=== PATIENT | female | born 1955 | race Caucasian/White ===

== ENCOUNTER → 2017-07-15 | Outpatient (CLI) | payer BC ==
--- NOTE | 2017-07-15 13:21 | REPMRS ---
Patient History The patient states she has not had a clinical breast exam in over a year. Patient is postmenopausal. Family history of breast cancer in maternal aunt under age 50 and colorectal cancer in maternal aunt at age 50 or over. Benign excisional biopsy of the right breast. Digital Woman Screen Mammo: July 15, 2017 - Exam #: [id number] Bilateral CC and MLO view(s) were taken. Technologist: Keke Bose, Technologist Prior study comparison: May 27, 2016, digital woman screen mammo performed at [facility] [employer] [facility]. January 07, 2015, digital woman screen mammo performed at [facility] [employer] [facility]. FINDINGS: There are scattered fibroglandular densities. There has been no change in the appearance of the mammogram from the prior studies. There is a mild amount of residual fibroglandular tissue which is fairly symmetric. There is no interval development of dominant mass, architectural distortion, or clustered microcalcification suggestive of malignancy. ASSESSMENT: BI-RADS/ACR category 1 mammogram. Negative. Recommendation Routine screening mammogram in 1 year (for women over age 40). This mammogram was interpreted with the aid of an FDA-approved computer-aided dectection system. Electronically Signed By: Dion Kramer MD 07/15/17 [id number]
== END ==
LOC: M WHC 10:21
PROVIDERS: ATTEND Family Medicine
DX: Z12.31 Encounter for screening mammogram for malignant neoplasm of breast (principal); Z78.0 Asymptomatic menopausal state

== ENCOUNTER → 2018-10-30 | Outpatient (CLI) | payer BC ==
--- NOTE | 2018-10-30 13:00 | REPMRS ---
Patient History The patient states she has not had a clinical breast exam in over a year. Family history of breast cancer under age 50 in maternal aunt, colorectal cancer at age 50 or over in maternal aunt. Benign excisional biopsy of the right breast. 3D TOMOSYNTHESIS WAS PERFORMED. Digital Woman Screen Mammo: October 30, 2018 - Exam #: [id number] Bilateral CC and MLO view(s) were taken. Technologist: Demetra Stewart, Technologist Prior study comparison: July 15, 2017, digital woman screen mammo performed at [facility] [employer] May 27, 2016, digital woman screen mammo performed at [facility] [employer]. FINDINGS: There are scattered fibroglandular densities. There has been no change in the appearance of the mammogram from the prior studies. There is a mild amount of residual fibroglandular tissue which is fairly symmetric. There is no interval development of dominant mass, architectural distortion, or clustered microcalcification suggestive of malignancy. Assessment: BI-RADS/ACR category 1 mammogram. Negative Mammogram. Recommendation Routine screening mammogram in 1 year (for women over age 40). This mammogram was interpreted with the aid of an FDA-approved computer-aided dectection system. Electronically Signed By: Dion Kramer MD 10/30/18 1300
--- NOTE | 2018-10-31 13:35 | DEXA ---
AP SPINE L1 - L4 0.900 -2.4 -0.8 LT FEMUR TOTAL 0.827 -1.4 -0.3 LT NECK 0.790 -1.8 -0.4 RT FEMUR TOTAL 0.830 -1.4 -0.3 RT NECK 0.813 -1.6 -0.2 TOTAL BODY TOTAL OTHER COMMENTS: There is low bone density of the spine and hips. The decreased density of the spine does not represent a significant change. The increased density of the left hip does represent a significant change. The decreased density of the right hip does not represent a significant change. The density of the spine has decreased 2.6% since the initial exam on 04/18/2001. The spine density has decreased 1.4% since the most recent exam on 05/24/2013. The density of the left hip has decreased 5.1% since the initial exam on 04/18/2001. The density of the left hip has increased 5.1% since the most recent exam on 05/24/2013. The density of the right hip has decreased 4.3% since the initial exam on 04/18/2001. The density of the right hip has decreased 0.8% since the most recent exam on 05/24/2013. FOLLOW-UP: Recommendation for the next bone density exam: 2 years. MARIANA
== END ==
LOC: M WHC 10:44
PROVIDERS: ATTEND Family Medicine
DX: Z12.31 Encounter for screening mammogram for malignant neoplasm of breast (principal); Z13.820 Encounter for screening for osteoporosis; M85.80 Other specified disorders of bone density and structure, unspecified site

== ENCOUNTER → 2020-08-01 | Outpatient (CLI) | payer MEDICARE, BC ==
--- NOTE | 2020-08-01 10:35 | REPMRS ---
Patient History The patient states she had a clinical breast exam in 2019. Family history of breast cancer under age 50 in maternal aunt, colorectal cancer at age 50 or over in maternal aunt. Benign excisional biopsy of the right breast. Digital Woman Screen Mammo: August 01, 2020 - Exam #: [id number] Bilateral CC and MLO view(s) were taken. Technologist: Jessica Arevalo, Technologist Prior study comparison: October 30, 2018, bilateral digital woman screen mammo performed at [facility]. July 15, 2017, digital woman screen mammo performed at [facility]. May 27, 2016, digital woman screen mammo performed at [facility]. FINDINGS: There are scattered fibroglandular densities. The Volpara volumetric breast density category is:B. There has been no change in the appearance of the mammogram from the prior studies. There is a mild amount of scattered fibroglandular density which is fairly symmetric. There is no interval development of dominant mass, architectural distortion, or grouped microcalcification suggestive of malignancy. 3-D tomosynthesis shows no additional findings. Assessment: BI-RADS/ACR category 1 mammogram. Negative Mammogram. Recommendation Routine screening mammogram of both breasts in 1 year (for women over age 40). This patient's [facility] Lifetime Breast Cancer Risk is estimated at 7.6 %. This mammogram was interpreted with the aid of an FDA-approved computer-aided dectection system. Electronically Signed By: Luis Garcia MD 08/01/20 [id number]
== END ==
LOC: M WHC 08:51
PROVIDERS: ATTEND Family Medicine
DX: Z12.31 Encounter for screening mammogram for malignant neoplasm of breast (principal)

== ENCOUNTER → 2020-12-26 | Outpatient (CLI) | payer MEDICARE, BC ==
--- NOTE | 2020-12-26 11:07 | DEXAMM ---
INDICATION: Z78.0 ASYMPTOMATIC MENOPAUSAL STATE. COMPARISON: 10/30/2018 as well as other prior exams. TECHNIQUE: Bone density was measured using dual-energy x-ray absorptiometry (DEXA). FINDINGS: AP SPINE L1-L4 BMD 0.858 g/cm2 Young Adult T-Score -2.7 Age Matched Z-Score -1.1. LT FEMUR, TOTAL BMD 0.808 g/cm2 Young Adult T-Score -1.6 Age Matched Z-Score -0.3. LT NECK BMD 0.807 g/cm2 Young Adult T-Score -1.7 Age Matched Z-Score -0.1. RT FEMUR, TOTAL BMD 0.816 g/cm2 Young Adult T-Score -1.5 Age Matched Z-Score -0.2. RT NECK BMD 0.798 g/cm2 Young Adult T-Score -1.7 Age Matched Z-Score -0.2. IMPRESSION: There is osteoporosis of the spine. There is low bone density of the left hip. There is low bone density of the right hip. The density of the spine has decreased 7.1% since the initial exam on 04/18/2001. The density of the spine decreased 4.7% since most recent exam on 10/30/2018. The density of the left hip has decreased 7.2% since initial exam on 04/18/2001. The density of the left hip has decreased 2.3% since most recent exam on 10/30/2018. The density of the right hip has decreased 5.9% since the initial exam on 04/18/2001. The density of the right hip has decreased 1.7% since the most recent exam on 10/30/2018. FOLLOW-UP: Recommendation for the next bone density exam: 2 years. <Electronically signed by Dion Kramer > 12/26/20 [id number]
== END ==
LOC: M WHC 09:50
PROVIDERS: ATTEND Nurse Practitioner Family
DX: Z78.0 Asymptomatic menopausal state (principal)

== ENCOUNTER → 2021-08-27 | Outpatient (CLI) | payer MEDICARE, BC ==
--- NOTE | 2021-08-27 12:11 | REPMRS ---
Patient History The patient states she had a clinical breast exam in 07/2021. Patient is postmenopausal. Family history of breast cancer under age 50 in maternal aunt, colorectal cancer at age 50 or over in maternal aunt. Benign excisional biopsy of the right breast. No Hormone Replacement Therapy Tomosynthesis is performed. Volpara breast density is b. [facility] lifetime risk of breast cancer 7.2%. Patient states no breast complaints today. Patient has signed MRS History Sheet. Moderna vaccine 08/2020., 09/2020, booster 06/26/2021. Digital Woman Screen Mammo: August 27, 2021 - Exam #: [id number] Bilateral CC and MLO view(s) were taken. Technologist: Christianne Green, Technologist Prior study comparison: August 01, 2020, bilateral digital woman screen mammo performed at [facility]. October 30, 2018, bilateral digital woman screen mammo performed at [facility]. FINDINGS: There are scattered fibroglandular densities. There has been no change in the appearance of the mammogram from the prior studies. There is a mild amount of residual fibroglandular tissue which is fairly symmetric. There is no interval development of dominant mass, architectural distortion, or clustered microcalcification suggestive of malignancy. Assessment: BI-RADS/ACR category 1 mammogram. Negative Mammogram. Recommendation Routine screening mammogram in 1 year (for women over age 40). This mammogram was interpreted with the aid of an FDA-approved computer-aided dectection system. Electronically Signed By: Dion Kramer MD 08/27/21 0578
== END ==
LOC: M WHC 10:44
PROVIDERS: ATTEND Nurse Practitioner Family
DX: Z12.31 Encounter for screening mammogram for malignant neoplasm of breast (principal)

== ENCOUNTER 2022-02-08 09:21 | Inpatient (IN) | payer MEDICARE, BC ==
[~2022-02-08] VITALS: Ht 162.6 cm; Wt 93.1 kg
[2022-02-08] MEDS ORDERED: ALEN70TA82 (09:33)
[2022-02-08] MEDS ORDERED: LEVO125T4 (09:33)
[2022-02-08] MEDS ORDERED: MORPHINE 4 MG/ML 1ML VIAL/SYRINGE IV ONE (10:40)
[2022-02-08] MEDS ORDERED: NS 1,000 ML IV ONE (10:40)
[2022-02-08] MEDS ORDERED: ISOVUE-370 76% 100ML VIAL As Ordered ONE (11:51)
[2022-02-08 12:24] LABS: BASO # 0.1 10^3/uL (0.0-0.2); BASO % 0.4 % (0.0-1.0); HEMOGLOBIN 15.2 g/dl (12.0-15.5); LYMPH # 1.2 10^3/uL (1.5-5.0); LYMPH % 8.5 % (24.0-44.0); MEAN CORPUSCULAR HGB CONC 32.3 g/dl (32.0-36.5); MEAN CORPUSCULAR VOLUME 86.6 fl (80.0-96.0); MONO # 0.9 10^3/uL (0.0-0.8); MONO % 6.3 % (2.0-8.0); NEUTROPHILS # 11.4 10^3/uL (1.5-8.5); NEUTROPHILS % 84.1 % (36.0-66.0); PLATELET COUNT, AUTOMATED 238 10^3/uL (150-450); RED BLOOD COUNT 5.43 10^6/uL (4.00-5.40); WHITE BLOOD COUNT 13.6 10^3/uL (4.0-10.0)
[2022-02-08] MEDS ORDERED: ONDANSETRON 4MG 2ML VIAL IV ONE (12:30)
[2022-02-08 12:35] LABS: INR 0.94; PARTIAL THROMBOPLASTIN TIME 29.7 SECONDS (25.9-37.0)
[2022-02-08 12:54] LABS: CK-MB VALUE MASS < 1.0 NG/ML (<3.6); CPK CREATINE PHOSPHOKINASE 80 U/L (26-192); MB/CK RELATIVE INDEX 1.25 (< OR =4)
[2022-02-08 12:59] LABS: ALBUMIN 3.8 GM/DL (3.2-5.2); ALT/SGPT 17 U/L (12-78); BILIRUBIN,DIRECT 0.3 MG/DL (0.0-0.2); BILIRUBIN,TOTAL 1.1 MG/DL (0.2-1.0); BLOOD UREA NITROGEN 10 MG/DL (7-18); CALCIUM LEVEL 9.8 MG/DL (8.8-10.2); CARBON DIOXIDE LEVEL 26 MEQ/L (21-32); CHLORIDE LEVEL 102 MEQ/L (98-107); CREATININE FOR GFR 0.84 MG/DL (0.55-1.30); FREE T4 1.16 NG/DL (0.76-1.46); GLOMERULAR FILTRATION RATE > 60.0 (>45); GLUCOSE, FASTING 115 MG/DL (70-100); LIPASE 71 U/L (73-393); NT-PRO BNP 207 PG/ML (<125); POTASSIUM SERUM 4.3 MEQ/L (3.5-5.1); SODIUM LEVEL 136 MEQ/L (136-145); TOTAL PROTEIN 7.3 GM/DL (6.4-8.2)
[2022-02-08] MEDS ORDERED: PIPERACILLIN/TAZOBACTAM SOD 3.375 GM in D5W MINI-BAG PLUS 50 ML IV ONE (13:20)
[2022-02-08] MEDS ORDERED: KETOROLAC 30 MG/ML 1ML VIAL IV ONE (13:25)
[2022-02-08 14:41] LABS: RSV AMPLIFICATION NEGATIVE (NEGATIVE)
[2022-02-08] MEDS ORDERED: dexameTHASONE 4 MG/ML 1ML VIAL (J1100 PER 1MG) As Ordered ONE (15:57)
[2022-02-08] MEDS ORDERED: LIDOCAINE 2% 100MG/5ML SDV (FOR ANES.) As Ordered ONE (15:57)
[2022-02-08] MEDS ORDERED: propofoL 200 MG/20 ML VIAL As Ordered ONE (15:57)
[2022-02-08] MEDS ORDERED: ONDANSETRON 4MG 2ML VIAL As Ordered ONE (15:57)
[2022-02-08] MEDS ORDERED: ROCURONIUM BROMIDE 50 MG/5 ML VIAL As Ordered ONE (15:57)
[2022-02-08] MEDS ORDERED: LIDOCAINE 1% SDV 30ML VIAL As Ordered ONE (16:18)
[2022-02-08] MEDS ORDERED: BUPIVACAINE HCL 0.25% 30ML VIAL As Ordered ONE (16:18)
[2022-02-08] MEDS ORDERED: fentaNYL 100 MCG/2 ML INJECTION As Ordered ONE (16:19)
[2022-02-08] MEDS ORDERED: MIDAZOLAM INJ 2MG/2ML VIAL (J2250 PER 1MG) As Ordered ONE (16:19)
[2022-02-08] MEDS ORDERED: METOCLOPRAMIDE INJ 10MG/2ML VIAL (J2765 PER 1) As Ordered ONE (16:19)
[2022-02-08] MEDS ORDERED: GLUCAGON INJ 1MG VIAL As Ordered ONE (17:23)
[2022-02-08] MEDS ORDERED: ACETAMINOPHEN TAB 650MG DOSE (2X325MG) PO PRN (20:05)
[2022-02-08] MEDS ORDERED: PERCOCET 5MG/325MG TAB PO PRN ×2 (20:05)
[2022-02-08] MEDS ORDERED: ONDANSETRON 4MG 2ML VIAL IV PRN ×2 (20:05→20:20)
[2022-02-08] MEDS ORDERED: MORPHINE 2 MG/ML 1ML VIAL IV PRN (20:05)
[2022-02-08] MEDS ORDERED: SUGAMMADEX SODIUM 500 MG/5 ML VIAL (BRIDION) As Ordered ONE (20:14)
[2022-02-08] MEDS ORDERED: ACETAMINOPHEN 1000MG 100ML IV BTL (OFIRMEV) (J0131 PER 10MG) As Ordered ONE (20:14)
[2022-02-08] MEDS ORDERED: LABETALOL 100MG/20ML VIAL As Ordered ONE (20:14)
[2022-02-08] MEDS ORDERED: LR 1,000 ML IV SCH (20:20)
[2022-02-08] MEDS ORDERED: oxyCODONE 5MG TAB PO PRN (20:20)
[2022-02-08] MEDS ORDERED: fentaNYL 100 MCG/2 ML INJECTION IV PRN (20:20)
[2022-02-08 21:05] VITALS: BP 113/64
[2022-02-08 21:35] VITALS: BP 116/66
[2022-02-08] MEDS: KETOROLAC 30 MG/ML 1ML VIAL IV SCH (21:53)
[2022-02-08] MEDS: SENOKOT S TAB PO SCH (21:53)
[2022-02-08] MEDS: PIPERACILLIN/TAZOBACTAM SOD 3.375 GM in D5W MINI-BAG PLUS 50 ML IV SCH (21:54)
[2022-02-08] MEDS: KCL 20MEQ IN D5/0.45NS 1000ML 1,000 ML IV SCH (21:54)
[2022-02-08 22:35] VITALS: BP 113/66
[2022-02-08 23:35] VITALS: BP 96/55
[2022-02-09] VITALS (11 sets, daily range): BP systolic 107–141; BP diastolic 60–75
[2022-02-09] MEDS: KCL 20MEQ IN D5/0.45NS 1000ML 1,000 ML IV SCH ×2 (04:05→08:12)
[2022-02-09] MEDS: KETOROLAC 30 MG/ML 1ML VIAL IV SCH ×4 (04:10→20:20)
[2022-02-09] MEDS: PIPERACILLIN/TAZOBACTAM SOD 3.375 GM in D5W MINI-BAG PLUS 50 ML IV SCH ×4 (04:11→20:20)
[2022-02-09 06:13] LABS: BASO % 0.2 % (0.0-1.0); HEMATOCRIT 37.2 % (36.0-47.0); LYMPH # 1.1 10^3/uL (1.5-5.0); LYMPH % 9.4 % (24.0-44.0); MEAN CORPUSCULAR HEMOGLOBIN 29.1 pg (27.0-33.0); MEAN CORPUSCULAR HGB CONC 32.8 g/dl (32.0-36.5); MEAN CORPUSCULAR VOLUME 88.8 fl (80.0-96.0); MONO # 0.9 10^3/uL (0.0-0.8); MONO % 7.7 % (2.0-8.0); NEUTROPHILS # 9.5 10^3/uL (1.5-8.5); NEUTROPHILS % 82.3 % (36.0-66.0); PLATELET COUNT, AUTOMATED 208 10^3/uL (150-450); RED BLOOD COUNT 4.19 10^6/uL (4.00-5.40); WHITE BLOOD COUNT 11.6 10^3/uL (4.0-10.0)
[2022-02-09 06:18] LABS: HEMOGLOBIN 12.2 g/dl (12.0-15.5)
[2022-02-09 06:49] LABS: ALBUMIN 2.7 GM/DL (3.2-5.2); BILIRUBIN,TOTAL 1.1 MG/DL (0.2-1.0); CALCIUM LEVEL 8.6 MG/DL (8.8-10.2); CREATININE FOR GFR 1.01 MG/DL (0.55-1.30); GLOMERULAR FILTRATION RATE 58.2 (>45); POTASSIUM SERUM 4.4 MEQ/L (3.5-5.1); TOTAL PROTEIN 6.4 GM/DL (6.4-8.2)
[2022-02-09 07:46] LABS: BILIRUBIN,DIRECT 0.4 MG/DL (0.0-0.2)
[2022-02-09] MEDS: SENOKOT S TAB PO SCH ×2 (09:21→20:20)
[2022-02-09] MEDS: PANTOPRAZOLE 40MG VIAL IV SCH (09:21)
[2022-02-09] MEDS: LEVOTHYROXINE 125MCG TABLET (0.125MG) PO SCH (13:05)
[2022-02-09] MEDS ORDERED: ISOVUE-300 61% 50ML VIAL As Ordered ONE (14:27)
[2022-02-09] MEDS ORDERED: dexameTHASONE 4 MG/ML 1ML VIAL (J1100 PER 1MG) As Ordered ONE ×2 (14:48→14:51)
[2022-02-09] MEDS ORDERED: fentaNYL 100 MCG/2 ML INJECTION As Ordered ONE (14:50)
[2022-02-09] MEDS ORDERED: ROCURONIUM BROMIDE 50 MG/5 ML VIAL As Ordered ONE (14:52)
[2022-02-09] MEDS ORDERED: LIDOCAINE 2% 100MG/5ML SDV (FOR ANES.) As Ordered ONE (14:52)
[2022-02-09] MEDS ORDERED: propofoL 200 MG/20 ML VIAL As Ordered ONE (15:42)
[2022-02-09] MEDS ORDERED: MIDAZOLAM INJ 2MG/2ML VIAL (J2250 PER 1MG) As Ordered ONE (15:43)
[2022-02-09] MEDS ORDERED: PHENYLephrine 500MCG 5ML (100MCG/ML) SYRINGE As Ordered ONE (16:21)
[2022-02-09] MEDS ORDERED: ONDANSETRON 4MG 2ML VIAL As Ordered ONE (16:27)
[2022-02-09] MEDS ORDERED: SUGAMMADEX SODIUM 500 MG/5 ML VIAL (BRIDION) As Ordered ONE (16:27)
[2022-02-09] MEDS ORDERED: LR 1,000 ML IV SCH (16:55)
[2022-02-09] MEDS ORDERED: oxyCODONE 5MG TAB PO PRN (16:55)
[2022-02-09] MEDS ORDERED: MORPHINE 2 MG/ML 1ML VIAL IV PRN (16:55)
[2022-02-09] MEDS ORDERED: fentaNYL 100 MCG/2 ML INJECTION IV PRN (16:55)
[2022-02-09] MEDS ORDERED: ONDANSETRON 4MG 2ML VIAL IV PRN (16:55)
[2022-02-09] MEDS ORDERED: LR 1,000 ML IV ONE (17:10)
[2022-02-09] MEDS: ENOXAPARIN 40MG/0.4ML SYRINGE (J1650 PER 10MG) SC SCH (18:43)
[2022-02-09] MEDS: LR 1,000 ML IV SCH (21:55)
[2022-02-10 03:00] VITALS: BP 135/72
[2022-02-10] MEDS: PIPERACILLIN/TAZOBACTAM SOD 3.375 GM in D5W MINI-BAG PLUS 50 ML IV SCH ×3 (03:00→15:32)
[2022-02-10] MEDS: KETOROLAC 30 MG/ML 1ML VIAL IV SCH ×3 (04:58→15:56)
[2022-02-10] MEDS: LEVOTHYROXINE 125MCG TABLET (0.125MG) PO SCH (05:53)
[2022-02-10] MEDS: LR 1,000 ML IV SCH (05:53)
[2022-02-10 06:31] LABS: BASO % 0.2 % (0.0-1.0); HEMATOCRIT 36.8 % (36.0-47.0); HEMOGLOBIN 11.9 g/dl (12.0-15.5); LYMPH # 0.9 10^3/uL (1.5-5.0); LYMPH % 9.8 % (24.0-44.0); MEAN CORPUSCULAR HEMOGLOBIN 29.1 pg (27.0-33.0); MEAN CORPUSCULAR HGB CONC 32.3 g/dl (32.0-36.5); MONO # 0.6 10^3/uL (0.0-0.8); MONO % 6.2 % (2.0-8.0); NEUTROPHILS # 7.5 10^3/uL (1.5-8.5); NEUTROPHILS % 83.4 % (36.0-66.0); PLATELET COUNT, AUTOMATED 192 10^3/uL (150-450); RED BLOOD COUNT 4.09 10^6/uL (4.00-5.40); WHITE BLOOD COUNT 8.9 10^3/uL (4.0-10.0)
[2022-02-10 07:00] VITALS: BP 132/68
[2022-02-10 07:04] LABS: ALBUMIN 2.7 GM/DL (3.2-5.2); ALT/SGPT 46 U/L (12-78); BILIRUBIN,TOTAL 0.6 MG/DL (0.2-1.0); BLOOD UREA NITROGEN 7 MG/DL (7-18); CALCIUM LEVEL 8.5 MG/DL (8.8-10.2); CARBON DIOXIDE LEVEL 28 MEQ/L (21-32); CHLORIDE LEVEL 108 MEQ/L (98-107); CREATININE FOR GFR 0.85 MG/DL (0.55-1.30); GLOMERULAR FILTRATION RATE > 60.0 (>45); GLUCOSE, FASTING 127 MG/DL (70-100); POTASSIUM SERUM 4.4 MEQ/L (3.5-5.1); SODIUM LEVEL 141 MEQ/L (136-145); TOTAL PROTEIN 5.7 GM/DL (6.4-8.2)
[2022-02-10] MEDS: PANTOPRAZOLE 40MG VIAL IV SCH (08:47)
[2022-02-10] MEDS: SENOKOT S TAB PO SCH (08:48)
[2022-02-10] MEDS: ENOXAPARIN 40MG/0.4ML SYRINGE (J1650 PER 10MG) SC SCH (08:48)
[2022-02-10 10:00] VITALS: BP 128/68
[2022-02-10 14:00] VITALS: BP 138/71
[2022-02-10] MEDS ORDERED: LEVO1TAB39 PO (15:19)
[2022-02-10] MEDS ORDERED: PERCOCET PO (15:19)
[2022-02-15] MEDS ORDERED: ALENDRONATE 35MG TABLET PO SCH (07:00)
== END 2022-02-10 16:50 | disposition home or self-care (01) | DRG 419 ==
LOC: M ED 09:21 → M ED INP 20:02 → M MSPAV 21:04
PROVIDERS: ADMIT Surgery; ATTEND Surgery
PROC: 0DNU4ZZ Release Omentum, Percutaneous Endoscopic Approach (ICD-10-PCS; 2022-02-08)
PROC: BF50200 Other Imaging of Bile Ducts using Fluorescing Agent, Indocyanine Green Dye, Intraoperative (ICD-10-PCS; 2022-02-08)
PROC: 8E0W4CZ Robotic Assisted Procedure of Trunk Region, Percutaneous Endoscopic Approach (ICD-10-PCS; 2022-02-08)
PROC: 0FT44ZZ Resection of Gallbladder, Percutaneous Endoscopic Approach (ICD-10-PCS; principal; 2022-02-08 14:24)
PROC: 0FC98ZZ Extirpation of Matter from Common Bile Duct, Via Natural or Artificial Opening Endoscopic (ICD-10-PCS; 2022-02-09)
DX: K80.62 Calculus of gallbladder and bile duct with acute cholecystitis without obstruction (principal); E03.9 Hypothyroidism, unspecified; M85.80 Other specified disorders of bone density and structure, unspecified site; M81.0 Age-related osteoporosis without current pathological fracture; R93.2 Abnormal findings on diagnostic imaging of liver and biliary tract; K66.0 Peritoneal adhesions (postprocedural) (postinfection); Z79.899 Other long term (current) drug therapy; Z91.013 Allergy to seafood

== ENCOUNTER → 2022-12-28 | Outpatient (CLI) | payer MEDICARE, BC ==
[~2022-12-28] MED LIST: ALEN70TA82; LEVO125T4; LEVO1TAB39 PO; PERCOCET PO
== END ==
LOC: M WHC 09:26
PROVIDERS: ATTEND Nurse Practitioner Family
DX: Z78.0 Asymptomatic menopausal state (principal); Z12.31 Encounter for screening mammogram for malignant neoplasm of breast

== ENCOUNTER → 2024-01-02 | Outpatient (CLI) | payer MEDICARE, BC | LOC: M WHC 09:41 | PROVIDERS: ATTEND Nurse Practitioner Family | DX: Z12.31 Encounter for screening mammogram for malignant neoplasm of breast (principal) ==

== ENCOUNTER → 2025-01-02 | Outpatient (CLI) | payer MEDICARE, BC | LOC: M WHC 10:13 | PROVIDERS: ATTEND Nurse Practitioner Family | DX: Z12.31 Encounter for screening mammogram for malignant neoplasm of breast (principal); M81.0 Age-related osteoporosis without current pathological fracture ==